=== PATIENT | male | born 1940 | race Caucasian/White ===

== ENCOUNTER → 2020-10-03 19:17 | Outpatient (ROUT) | payer MEDICARE, OTHER, SELFPAY ==
[2020-10-03 19:44] LABS: Aspartate Aminotransferase 27 IU/L (17-59); BUN Creatinine Ratio 24.1 (6-22); Blood Urea Nitrogen 20 mg/dL (9-20); Calcium 9.7 mg/dL (8.4-10.2); Carbon Dioxide 33 mmol/L (22-32); Chloride 95 mmol/L (98-107); Cholesterol 102 mg/dL (140-199); Estimated Glomerular Filt Rate > 60.0 mL/min (>60); Glucose 105 mg/dL (80-110); HDL Cholesterol 42 mg/dL (40-60); HEMOLYSIS < 15 (0-50); LDL Cholesterol Calculated 28 mg/dL (<100); Potassium 4.6 mmol/L (3.4-5.1); Sodium 133 mmol/L (137-145); Triglycerides 158 mg/dL (35-150)
[2020-10-03 19:52] LABS: Add Manual Diff / Slide Review NO; Basophils Absolute Auto 0 /uL (0-100); Basophils Percent Auto 0.5 % (0-2); Eosinophils Absolute Auto 0 /uL (0-450); Eosinophils Percent Auto 0.6 % (2-4); Hematocrit 41.3 % (41-53); Lymphocytes Absolute Auto 1400 /uL (1100-4500); Lymphocytes Percent Auto 17.1 % (25-40); Mean Corpuscular Hemoglobin 32.1 PG (26-34); Mean Corpuscular Volume 94.5 fL (80-100); Monocytes Absolute Auto 800 /uL (0-900); Monocytes Percent Auto 10.4 % (3-14); Neutrophils Absolute Auto 5700 /uL (1500-7000); Neutrophils Percent Auto 71.4 % (50-75); Platelet Count 223 X10^3/uL (150-400); Red Blood Cell Count 4.37 X10^6/uL (4.5-5.9); Red Cell Distribution Width 12.6 % (11.6-14.8)
== END ==
PROVIDERS: Family Provider Internal Medicine; PCP Internal Medicine; Visit Provider Internal Medicine
DX: I10 Essential (primary) hypertension (principal); E78.2 Mixed hyperlipidemia; D50.9 Iron deficiency anemia, unspecified
CPT/HCPCS: 80048; 80061; 84450; 85025

== ENCOUNTER → 2022-11-13 10:00 | Outpatient (CLI) | payer MEDICARE, OTHER, SELFPAY ==
--- NOTE | 2022-11-14 01:34 | DI.NM.S_ITS ---
DATE OF SERVICE: 11/13/2022 PROCEDURE: Pharmacological perfusion study. INDICATIONS: Preop evaluation for hip surgery with known history of hypertension, bicuspid aortic valve, history of SVT, history of tobacco abuse in the past. RADIOPHARMACEUTICAL: 25.7 millicurie technetium-99m Myoview IV was injected at stress and 12.4 millicurie technetium-99m Myoview IV was injected at rest. CARDIAC STRESS: The patient underwent IV Lexiscan perfusion study under the supervision of an attending staff using standard IV Lexiscan as per protocol. The patient remained hemodynamically stable. Resting blood pressure of 136/78. 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 During stress, no convincing ischemic changes seen. No new significant arrhythmias. No anginal symptoms. RAW DATA: There is increased subdiaphragmatic activity and hot spot near the inferior border of the heart. GATED STUDY: Stress LV ejection fraction 80% without any obvious wall motion abnormalities. Resting end-diastolic volume 90 mL. TID ratio 1.05, which is within normal limits. Lung/heart ratio 0.26, which is within normal limits. MYOCARDIAL PERFUSION SCAN: Please note, this patient does not have any prone images. Stress supine and resting supine images were compared to each other. Resting supine images revealed small size, minimally decreased perfusion of inferoapex. Stress supine images revealed small size, mildly decreased perfusion of inferoapex. No significant reversible ischemia. CONCLUSION: Predominantly, there is a fixed, small size inferior apical defect without any significant reversibility. There are no prone images. Hence, cannot distinguish a small inferior apical infarction versus artifact. However, on raw images, there is a hot spot near the inferior border of the heart. No wall motion abnormality and left ventricular ejection fraction 80% during stress with good contractility of the inferior wall and inferoapex, which goes against the diagnosis of previous myocardial infarction. Hence, most likely, we are dealing with tissue attenuation artifact. Conclusion, probably a normal myocardial perfusion study; however, no stress prone images. A predominantly small size, fixed inferior apical defect with good contractility. No significant reversible ischemia. Stress left ventricular ejection fraction 80%. Overall low-risk myocardial perfusion scan. Correlate clinically. Flaco Cabrera - BRIANA/cristina/missy doc#: [id number]/job#: [id number] dd: 11/13/2022 16:27:00 dt: 11/14/2022 01:10:00 DICTATING MD/COPIES TO: Clinton Marsh MD COPIES MNE: KACIE;
== END ==
PROVIDERS: Family Provider Internal Medicine; PCP Internal Medicine; Referring Provider Nurse Practitioner; Visit Provider Nurse Practitioner
DX: I47.1 Supraventricular tachycardia (principal); Z01.818 Encounter for other preprocedural examination; I10 Essential (primary) hypertension; Q23.1 Congenital insufficiency of aortic valve; Z87.891 Personal history of nicotine dependence
CPT/HCPCS: 78452; 93017; A9502; J2785

== ENCOUNTER → 2024-08-07 09:36 | Outpatient (CLI) | payer MEDICARE, OTHER, SELFPAY ==
[2024-08-07 10:40] LABS: Add Manual Diff / Slide Review NO; Basophils Absolute Auto 0 /uL (0-100); Basophils Percent Auto 0.4 % (0-2); Eosinophils Absolute Auto 100 /uL (0-450); Eosinophils Percent Auto 1.2 % (2-4); Hematocrit 40.6 % (41-53); Hemoglobin 13.6 g/dL (13.5-17.5); Lymphocytes Absolute Auto 1600 /uL (1100-4500); Lymphocytes Percent Auto 22.2 % (25-40); Mean Corpuscular HGB Conc 33.4 % (30-36); Mean Corpuscular Hemoglobin 30.7 PG (26-34); Mean Corpuscular Volume 91.9 fL (80-100); Monocytes Absolute Auto 900 /uL (0-900); Neutrophils Absolute Auto 4600 /uL (1500-7000); Neutrophils Percent Auto 64.2 % (50-75); Platelet Count 231 X10^3/uL (150-400); Red Blood Cell Count 4.42 X10^6/uL (4.5-5.9); Red Cell Distribution Width 13.5 % (11.6-14.8); White Blood Cell Count 7.2 X10^3/uL (4.5-11.0)
[2024-08-07 11:00] LABS: HEMOLYSIS < 15 (0-50); Iron 67 ug/dL (49-181)
[2024-08-07 11:10] LABS: Percent Iron Saturation 27 % (20-50); Total Iron Binding Capacity 250 ug/dL (261-462); Transferrin 220 mg/dL (206-381)
[2024-08-07 11:11] LABS: Alanine Aminotransferase 24 IU/L (<50); Albumin 4.5 g/dL (3.5-5.0); Alkaline Phosphatase 103 U/L (38-126); Aspartate Aminotransferase 29 IU/L (17-59); Bilirubin Total 0.4 mg/dL (0.2-1.3); Blood Urea Nitrogen 33 mg/dL (9-20); Calcium 9.4 mg/dL (8.4-10.2); Carbon Dioxide 32 mmol/L (22-32); Chloride 100 mmol/L (98-107); Estimated Glomerular Filt Rate > 60 mL/min (>60); Globulin 2.3 g/dL (1.7-4.1); Glucose 90 mg/dL (80-110); HEMOLYSIS < 15 (0-50); Potassium 4.3 mmol/L (3.4-5.1); Sodium 137 mmol/L (137-145); Total Protein 6.8 g/dL (6.3-8.2)
[2024-08-07 11:20] LABS: Vitamin D 25 Hydroxy (D3) 47.5 ng/mL (30.0-100.0)
[2024-08-07 11:21] LABS: Free T4, Direct Thyroxine 1.05 ng/dL (0.78-2.19)
[2024-08-07 11:34] LABS: Thyroid Stimulating Hormone 5.39 uIU/mL (0.47-4.68)
[2024-08-07 11:38] LABS: Prostate Specific Antigen Scrn 0.967 ng/mL (0.1-4.0)
[2024-08-07 11:53] LABS: Vitamin B12 719 pg/mL (239-931)
== END ==
LOC: LAB 09:38
PROVIDERS: Family Provider Internal Medicine; PCP Family Medicine; Referring Provider Family Medicine; Visit Provider Family Medicine
DX: D64.9 Anemia, unspecified (principal); Z12.5 Encounter for screening for malignant neoplasm of prostate; E78.5 Hyperlipidemia, unspecified; I10 Essential (primary) hypertension; R53.83 Other fatigue
CPT/HCPCS: 36415; 80053; 82274; 82306; 82607; 83540; 83550; 84439; 84443; 85025; G0103

== ENCOUNTER → 2025-01-15 08:38 | Outpatient (CLI) | payer MEDICARE, OTHER, SELFPAY ==
[2025-01-15 09:14] LABS: Alanine Aminotransferase 17 IU/L (<50); Albumin 4.5 g/dL (3.5-5.0); Albumin Globulin Ratio 2.1 (1.0-2.8); Alkaline Phosphatase 103 U/L (38-126); Aspartate Aminotransferase 25 IU/L (17-59); BUN Creatinine Ratio 31.3 (6-22); Bilirubin Total 0.5 mg/dL (0.2-1.3); Blood Urea Nitrogen 25 mg/dL (9-20); Calcium 9.7 mg/dL (8.4-10.2); Carbon Dioxide 31 mmol/L (22-32); Chloride 98 mmol/L (98-107); Cholesterol 124 mg/dL (140-199); Estimated Glomerular Filt Rate > 60 mL/min (>60); Globulin 2.1 g/dL (1.7-4.1); Glucose 89 mg/dL (70-99); HDL Cholesterol 43 mg/dL (40-60); HEMOLYSIS < 15 (0-50); LDL Cholesterol Calculated 63 mg/dL (<100); Potassium 4.2 mmol/L (3.4-5.1); Sodium 135 mmol/L (137-145); Total Protein 6.6 g/dL (6.3-8.2); Triglycerides 91 mg/dL (35-150)
[2025-01-15 09:31] LABS: Free T4, Direct Thyroxine 1.18 ng/dL (0.78-2.19)
[2025-01-15 09:44] LABS: Thyroid Stimulating Hormone 6.49 uIU/mL (0.47-4.68)
== END ==
PROVIDERS: Family Provider Internal Medicine; PCP Family Medicine; Referring Provider Family Medicine; Visit Provider Family Medicine
DX: E03.9 Hypothyroidism, unspecified (principal); I10 Essential (primary) hypertension; E78.5 Hyperlipidemia, unspecified
CPT/HCPCS: 36415; 80053; 80061; 84439; 84443